=== PATIENT | male | born 1975 | race Two or more races ===

== ENCOUNTER → 2019-11-22 | Emergency (ER) | payer OTHER, MEDICAID ==
[~2019-11-22] VITALS: Ht 177.8 cm; Wt 113.4 kg
[~2019-11-22] MED LIST: HYDROcodone-ACET 10/325MG TAB PO ONE
[2019-11-22 20:35] VITALS: BP 149/82
== END | disposition left against medical advice (07) ==
LOC: ER 19:42 → EDBD 19:42
DX: S83.92XA Sprain of unspecified site of left knee, initial encounter (principal); S39.012A Strain of muscle, fascia and tendon of lower back, initial encounter; S46.912A Strain of unspecified muscle, fascia and tendon at shoulder and upper arm level, left arm, initial encounter; S16.1XXA Strain of muscle, fascia and tendon at neck level, initial encounter; S00.01XA Abrasion of scalp, initial encounter; V43.62XA Car passenger injured in collision with other type car in traffic accident, initial encounter; Y93.89 Activity, other specified; Y92.488 Other paved roadways as the place of occurrence of the external cause; Y99.8 Other external cause status
CPT/HCPCS: 70450; 71250; 72125; 72131; 73030; 73560; 74176